=== PATIENT | female | born 1980 | race Caucasian/White ===

== ENCOUNTER 2017-06-24 12:51 | Inpatient (IN) | payer OTHER ==
[2017-06-24 17:25] LABS: Hematocrit 36 % (35-47); Hemoglobin 12.2 g/dl (12.0-16.0); Mean Corpuscular HGB Conc 34 g/dl (31-36); Mean Corpuscular Hemoglobin 32 pg (27-31); Mean Corpuscular Volume 94 fL (80-97); Mean Platelet Volume 10 um3 (7.4-10.4); Red Blood Count 3.82 10^6/ul (4.0-5.4); Red Cell Distribution Width 13 % (10.5-15); White Blood Count 18.9 10^3/ul (3.5-10.8)
[2017-06-24] MEDS ORDERED: OBEPIDURAL* 0 ML ONE (21:28)
[2017-06-24] MEDS ORDERED: fentaNYL* 50 MCG/ML 2 ML VIAL (100 MCG VIAL) ONE (22:06)
[2017-06-24] MEDS ORDERED: Sodium Citrate/Citric Acid* 15 ML UDC PO PRN (22:26)
[2017-06-24] MEDS ORDERED: Phenylephrine IV* 40 MCG/ML 10 ML SYRINGE IV PUSH PRN ×2 (22:26)
[2017-06-25] MEDS ORDERED: Dibucaine 1% 28.35 GM TUBE PR PRN (01:58)
[2017-06-25] MEDS ORDERED: Acetaminophen TAB* 325 MG PO PRN (01:58)
[2017-06-25] MEDS ORDERED: Glycerin ADULT SUPP PR PRN (01:58)
[2017-06-25] MEDS ORDERED: Witch Hazel PAD* JAR TOPICAL PRN (01:58)
[2017-06-25] MEDS: Docusate CAP* 100 MG PO SCH ×3 (08:01→19:49)
[2017-06-25] MEDS: Ibuprofen TAB* 600 MG PO PRN ×3 (08:01→19:49)
[2017-06-25] MEDS ORDERED: Simethicone TAB* 80 MG TAB.CHEW PO SCH (08:30)
--- NOTE | 2017-06-25 09:00 | PTEDU ---
Patient Name: LIANE MUSA LIANE MUSA selected video: Follow Me Mum: [employer] [facility] [facility] [employer] to view on at 8:58:29 AM from [id number]
[2017-06-26] MEDS: Ibuprofen TAB* 600 MG PO PRN ×2 (02:03→11:07)
[2017-06-26 07:06] LABS: Hematocrit 31 % (35-47); Hemoglobin 10.6 g/dl (12.0-16.0); Mean Corpuscular HGB Conc 34 g/dl (31-36); Mean Corpuscular Hemoglobin 33 pg (27-31); Mean Corpuscular Volume 96 fL (80-97); Mean Platelet Volume 9 um3 (7.4-10.4); Red Blood Count 3.21 10^6/ul (4.0-5.4); Red Cell Distribution Width 13 % (10.5-15); White Blood Count 15.5 10^3/ul (3.5-10.8)
[2017-06-26] MEDS ORDERED: Ferrous Gluconate TAB* 324 MG TAB PO SCH (09:00)
[2017-06-26] MEDS: Tetan/Diph/Pertus SYR(Tdap)* 0.5 ML SYR(BOOSTRIX) use SYR IM ONE ×3 (10:03→13:28)
[2017-06-26] MEDS ORDERED: [UNRECOGNIZED DRUG - OTHER] IM ONE (11:00)
[2017-06-26] MEDS: Docusate CAP* 100 MG PO SCH ×2 (11:08→13:28)
[2017-06-26 13:18] VITALS: BP 118/62
== END 2017-06-26 14:24 | disposition home or self-care (01) | DRG 560 ==
LOC: MCHOBOUT 12:51 → MCHOB 13:50
PROVIDERS: ADMIT Midwife; ATTEND Midwife
PROC: 4A1HX4Z Monitoring of Products of Conception, Cardiac Electrical Activity, External Approach (ICD-10-PCS; principal; 2017-06-24)
PROC: 10E0XZZ Delivery of Products of Conception, External Approach (ICD-10-PCS; 2017-06-24)
PROC: 0KQM0ZZ Repair Perineum Muscle, Open Approach (ICD-10-PCS; 2017-06-24)
PROC: 10907ZC Drainage of Amniotic Fluid, Therapeutic from Products of Conception, Via Natural or Artificial Opening (ICD-10-PCS; 2017-06-24)
DX: O69.81X0 Labor and delivery complicated by cord around neck, without compression, not applicable or unspecified (principal); O48.0 Post-term pregnancy; Z3A.40 40 weeks gestation of pregnancy; Z37.0 Single live birth; O70.1 Second degree perineal laceration during delivery; O76 Abnormality in fetal heart rate and rhythm complicating labor and delivery
CPT/HCPCS: 36415; 85025; 86850; 86900; 86901; 90715; A9270-GY; J3010

== ENCOUNTER 2019-07-09 09:54 | Inpatient (IN) | payer BC ==
[2019-07-09] MEDS ORDERED: Misoprostol TAB* 100 MCG PO ONE ×2 (12:14→17:13)
--- NOTE | 2019-07-09 12:18 | PN ---
L&D Outpatient: Visit - Reproductive Information Estimated Due Date: 07/11/19 Gestational Age: 39 Weeks and 5 Days : 5 Para: 1 - 1121 - Reason for Visit Visit Reason: cervical ripening - Antepartal Records Antepartal Record: Reviewed, Complicated by: - gestational diabetes ( diet controlled), AMA Review of Systems Constitutional: Comfortable CV Complaint: No Respiratory: Shortness of Breath: No Gastrointestinal: No Nausea/Vomiting, Normal Bowel Movement Genitourinary: No Dysuria, No Bleeding, No Leaking Fluid Musculoskeletal: No Complaint, No Epigastric Pain Neurological: No Headache, No Visual Changes Movement: Normal L&D Outpatient: Exam Vitals - Most Recent: T:98.6, P:72, R:16, BP:124/68, O2:95% - Cervical Exam Cervical Exam: /-2 - Abdominal Exam Abdomen Exam: Fundal Height Consistent with Dates - Membranes Membrane Status: Intact - Ultrasound/Biophysical Profile Ultrasound Status: Not Done EFM Findings - External Monitor Findings Baseline Heart Rate: 120 External Monitor Findings: Accelerations Present, No Pattern of Variable or Late Decelerations, Variability Moderate, Baseline Stable Contractions: Regular, Mild, < 45 Seconds Contraction Frequency: 3-5 L&D Outpatient: Asses/Plan Assessment: 38 y.o. , 39w 5d, IOL, GDM diet controlled - Discharge Diagnosis Discharge Diagnosis: Supervision-Normal Preg Plan: Admit as Inpatient
[2019-07-09 14:03] LABS: Urine Benzodiazepine Screen None Detected (None Detect); Urine Opiates Screen None Detected (None Detect)
--- NOTE | 2019-07-09 17:23 | HP ---
General Information - Reason for Visit Pt reports contractions are a little stronger but feel more like cramps. Pt frustrated with slow progress but also not wanting too many interventions. - General Information Maternal Age: 38 Grav: 5 Para: 1 - 1121 SAB: 1 IEA: 1 Estimated Due Date: 07/11/19 Determined By: LMP Gestational Age in Weeks/Days: 39.5 Maternal Blood Type and Rh: A Positive - Results this Serology/RPR Result: Non-Reactive Rubella Result: Immune HBsAg Result: Negative HIV Result: Negative GBS Culture Result: Negative Past Medical History Delivery History: Hx Uncomplicated Vaginal Delivery Pertinent Past Medical History: Non-Contributory Pertinent Past Surgical History: See Records - 2009 appendectomy Pertinent Family History: See Records - aunt: uterine CA; F: CVD - Antepartal Records Antepartal Records: Reviewed, Complicated by: - marginal previa ( resolved), gestational diabetes diet controlled Review of Systems Constitutional: Comfortable CV Complaint: No Respiratory: Shortness of Breath: No Gastrointestinal: No Nausea/Vomiting, Normal Bowel Movement Genitourinary: No Dysuria, No Bleeding, No Leaking Fluid Musculoskeletal: No Complaint, No Epigastric Pain Neurological: No Headache, No Visual Changes Movement: Normal Exam Allergies/Adverse Reactions: Allergies MS Latex [Latex] Allergy (Verified 06/24/17 15:58) Itching Lab Values - Entire Visit: Laboratory Tests 07/09/19 12:45 Urine Opiates Screen None detected Ur Barbiturates Screen None detected Ur Phencyclidine Scrn None detected Ur Amphetamines Screen None detected U Benzodiazepines Scrn None detected Urine Cocaine Screen None detected U Cannabinoids Screen None detected - Measurements Height: 5 ft 6 in Weight: 190 lb Weight in lbs: [phone] Body Mass Index (BMI): 30.7 Pre- Weight: 163 lb Weight Gained This : 27 lbs and 0 ozs - Exam Breast: Breast Exam Deferred CVA: No CVA Tenderness Extremities: No Edema Heart: Normal Rhythm/Heart Sounds HEENT: No Significant Findings Lungs: Clear Bilaterally Rectal: Rectal Exam Deferred Reflexes: DTR 2+ Thyroid: No Thyromegaly - Abdominal Exam Abdomen Exam: Non-Tender, Fundal Height Consistent with Dates - Ultrasound/Biophysical Profile Ultrasound Status: Not Done Targeted Exam Findings Estimated Weight: 8lbs Cervical Exam: 3cm Effacement: 80% Station: -2, -1 Presenting Part: Vertex Membrane Status: Intact Bleeding/Discharge: Bloody Show EFM Findings - External Monitor Findings Baseline Heart Rate: 130 External Monitor Findings: Accelerations Present, No Pattern of Variable or Late Decelerations, Variability Moderate, Baseline Stable Contractions: Regular, Mild, < 45 Seconds Contraction Frequency: 3-4 Assessment/Plan - Assessment 38 y.o. , 39w5d EGA, Induction of labor, AMA, GDM (diet controlled) - Plan Plan: Observe, Admit - Anticipate Vaginal Delivery - Date/Time of Admission Date of Admission: 07/09/19 Time of Admission: 17:30
[2019-07-09] MEDS ORDERED: Promethazine INJ(RESTRICTED)* 25 MG/ML 1 ML VIAL IV PRN (20:45)
[2019-07-09] MEDS ORDERED: Nalbuphine* 10 MG/ML 1 ML VIAL IV PRN (20:45)
[2019-07-10 03:11] LABS: Hematocrit 33 % (35-47); Hemoglobin 11.4 g/dL (12.0-16.0); Mean Corpuscular HGB Conc 34 g/dL (31-36); Mean Corpuscular Hemoglobin 32 pg (27-31); Mean Corpuscular Volume 95 fL (80-97); Mean Platelet Volume 9.8 fL (7.4-10.4); Platelet Count 172 10^3/uL (150-450); Red Blood Count 3.51 10^6 /uL (3.70-4.87); Red Cell Distribution Width 13 % (10-15); White Blood Count 13.7 10^3/uL (3.5-10.8)
[2019-07-10] MEDS ORDERED: Misoprostol TAB* 100 MCG PO ONE (10:24)
--- NOTE | 2019-07-10 10:42 | PN ---
Progress Note - Progress Note Date of Service: 07/10/19 SOAP: Subjective: Pt rested well from 3am-8am and reports contractions have now stopped. Pt denies LOF, VB and reports + FM. Pt frustrated with slow progress. Pt denies SOB, NÚÑEZ, chest pain or dizziness. Pt reports cough for a month now that started with a cold that has since resolved. Pt was seen by PCP 2 weeks ago and per pt he said her lungs were clear. Objective: BP:108/35, P:87, O2:93%, T:99.2 Cervix: 4/80/-2 FHR:125 bpm, + accels, -decels, moderate variability, ctx irr Lungs: clear breath sounds in left and right lower lobes, wheezing in bronchioles bilaterally. Assessment: 38 y.o. , 39w6d EGA, IOL, GDM, AMA Plan: 1) Con't to monitor O2 sats, reevaluate or sooner PRN 2) Reviewed options for con't IOL and R/B and pt agrees to continue with Miso 50mcg PO and possible AROM with onset of contractions 3) Position changes for descent 4) Reevaluate in 2 hrs or sooner PRN
--- NOTE | 2019-07-10 13:32 | PN ---
Progress Note - Progress Note Date of Service: 07/10/19 SOAP: Subjective: Pt reports cramping and increased pressure. Objective: BP:113/69, P:68, R;20, T:98.4, ctx q 2-4 mild cervix:/-2 AROM: clear Assessment: 38 y.o. , 39w6d EGA, cat I NST, GDM, AMA Plan: 1) AROM 2) Ambulation 3) Nitrous for pain mgmt PRN
[2019-07-10] MEDS ORDERED: Oxytocin in LR* 20 UNITS/1,000 ML BAG IVPB SCH (17:00)
--- NOTE | 2019-07-10 17:08 | PN ---
Progress Note - Progress Note Date of Service: 07/10/19 SOAP: Subjective: Pt reports contractions are the same, no increase in intensity or frequency. Objective: BP:114/57, P:79, R:18, T:99.2, FHR: 130, + accels, occasional variables, moderate variability cervix:/-1 Assessment: 38 y.o. , 39w6d EGA, induction of labor, cat I NST, GDM, AMA Plan: 1) Reviewed options of mgmt and R/B, pt agrees to continue with pitocin low dose 2) Reevaluate in 2hr PRN
[2019-07-10] MEDS ORDERED: Lactated Ringers 1000 ML Bag* 1,000 ML IV ONE ×2 (17:36→20:55)
[2019-07-10] MEDS ORDERED: Buffered Lidocaine 1% SYRIN* 1 ML/SYRINGE INTRADERM ONE (17:36)
[2019-07-10] MEDS ORDERED: Lactated Ringers 1000 ML Bag* 1,000 ML IV SCH ×3 (18:00→21:00)
[2019-07-10] MEDS ORDERED: OBEPIDURAL* 250 ML EPIDURAL ONE (20:02)
[2019-07-10] MEDS ORDERED: Sodium Citrate/Citric Acid* 15 ML UDC PO PRN (20:55)
[2019-07-10] MEDS ORDERED: Famotidine TAB* 20 MG PO PRN (20:55)
[2019-07-10] MEDS ORDERED: Lactated Ringers 1000 ML Bag* 500 ML IV PRN ×2 (20:55)
[2019-07-10] MEDS ORDERED: Phenylephrine 40 MCG/ML SYRINGE IV PUSH PRN ×2 (20:55)
[2019-07-10] MEDS ORDERED: OBEPIDURAL* 250 ML EPIDURAL SCH (21:00)
[2019-07-11] MEDS ORDERED: Lidocaine 2% w/ EPI 1:200,000* 20 ML SDV VIAL ONE (00:56)
--- NOTE | 2019-07-11 01:47 | PN ---
Progress Note - Progress Note Date of Service: 07/11/19 SOAP: Subjective: Pt reports pain is now better controlled after Dr. Pastrana administered epidural bolus. Objective: BP:111/61, P:60, FHR:125, + accels, decel after position change into 90s for approx 2 minutes with return to baseline, moderate variability, cervix: 7/90/-1. ctx q 2-3min Assessment: 38 y.o. , 40wks EGA, AMA, GDM, cat I NST Plan: 1) Pt will rest 2) Con't position changes 3) Reevaluate in 2 hrs or sooner PRN
[2019-07-11] MEDS ORDERED: Glycerin ADULT SUPP PR PRN (03:08)
[2019-07-11] MEDS ORDERED: Witch Hazel PAD* JAR TOPICAL PRN (03:08)
[2019-07-11] MEDS ORDERED: Dibucaine 1% 28.35 GM TUBE PR PRN (03:08)
--- NOTE | 2019-07-11 03:12 | PROCNOTE ---
[facility] OB: Delivery Note - Delivery A Date of : 07/11/19 Time of : 02:45 Sex: Male Weight at : 7 lb 4 oz Score 1 Minute: 6 Score 5 Minutes: 9 Gestational Age in Weeks and Days at Delivery: 40 Weeks and 0 Days Delivery Method: Spontaneous Vaginal Labor: Induced Amniotic Fluid: Clear Estimated Blood Loss: 200 Anesthesia/Analgesia: IM/IV, CEI for Labor Delivered By: Daysi Conrad - Nursery Level of Nursery: Regular/Bedside - Perineum Perineal Injury: Perineal Laceration, 1st Degree Perineal Repair: By Delivering Practioner
[2019-07-11] MEDS: Ibuprofen TAB* 600 MG PO PRN ×3 (03:38→15:56)
[2019-07-11] MEDS ORDERED: Oxytocin in LR* 20 UNITS/1,000 ML BAG IVPB SCH (04:00)
[2019-07-11] MEDS ORDERED: Lactated Ringers 1000 ML Bag* 1,000 ML IV SCH (04:00)
[2019-07-11] MEDS ORDERED: Ammonia Inhalant* 1 EA AMP ONE (05:47)
[2019-07-11] MEDS ORDERED: Simethicone TAB* 80 MG TAB.CHEW PO SCH (08:30)
[2019-07-11] MEDS: Docusate CAP* 100 MG PO SCH ×3 (08:40→21:15)
[2019-07-11] MEDS ORDERED: Lidocaine 1% INJ* 10 MG/ML 30 ML SDV ONE (10:15)
[2019-07-11] MEDS: Acetaminophen TAB* 325 MG PO PRN (14:37)
[2019-07-12] MEDS: Ibuprofen TAB* 600 MG PO PRN ×3 (03:08→21:12)
[2019-07-12] MEDS ORDERED: Ferrous Gluconate TAB* 324 MG TAB PO SCH (09:00)
[2019-07-12 09:32] LABS: ABS Basophils 0.1 10^3/ul (0-0.2); ABS Eosinophils 0.2 10^3/ul (0-0.6); ABS Lymphocytes 2.1 10^3/ul (1.0-4.8); ABS Monocytes 0.8 10^3/ul (0-0.8); ABS Neutrophils 10.5 10^3/ul (1.5-7.7); Eosinophil % 1.2 %; Hematocrit 34 % (35-47); Hemoglobin 11.6 g/dL (12.0-16.0); Lymphocyte % 15.6 %; Mean Corpuscular HGB Conc 34 g/dL (31-36); Mean Corpuscular Hemoglobin 32 pg (27-31); Mean Corpuscular Volume 95 fL (80-97); Mean Platelet Volume 9.4 fL (7.4-10.4); Platelet Count 176 10^3/uL (150-450); Red Blood Count 3.58 10^6 /uL (3.70-4.87); Red Cell Distribution Width 13 % (10-15); White Blood Count 13.6 10^3/uL (3.5-10.8)
[2019-07-12] MEDS: Docusate CAP* 100 MG PO SCH ×3 (09:57→21:12)
[2019-07-13] MEDS: Ibuprofen TAB* 600 MG PO PRN (05:58)
[2019-07-13 07:53] VITALS: BP 122/58
[2019-07-13] MEDS: Docusate CAP* 100 MG PO SCH (08:31)
[2019-07-13] MEDS: Acetaminophen TAB* 325 MG PO PRN (08:31)
== END 2019-07-13 10:42 | disposition home or self-care (01) | DRG 560 ==
LOC: MCHOBOUT 09:54 → MCHOB 11:00
PROVIDERS: ADMIT Midwife; ATTEND Midwife
PROC: 10E0XZZ Delivery of Products of Conception, External Approach (ICD-10-PCS; principal; 2019-07-11)
PROC: 3E033VJ Introduction of Other Hormone into Peripheral Vein, Percutaneous Approach (ICD-10-PCS; 2019-07-11)
PROC: 10907ZC Drainage of Amniotic Fluid, Therapeutic from Products of Conception, Via Natural or Artificial Opening (ICD-10-PCS; 2019-07-11)
PROC: 0HQ9XZZ Repair Perineum Skin, External Approach (ICD-10-PCS; 2019-07-11)
DX: O24.420 Gestational diabetes mellitus in childbirth, diet controlled (principal); Z37.0 Single live birth; O70.0 First degree perineal laceration during delivery; O69.81X0 Labor and delivery complicated by cord around neck, without compression, not applicable or unspecified; Z3A.39 39 weeks gestation of pregnancy
CPT/HCPCS: 36415; 80307; 85025; 85027; 86850; 86900; 86901; A9270-GY; J2300; J2550; S0191